=== PATIENT | male | born 1990 | race Asian ===

== ENCOUNTER 2025-07-29 16:50 | Emergency (ER) | payer OTHER ==
[~2025-07-29] VITALS: Ht 158.8 cm; Wt 80.3 kg
[2025-07-29] MEDS: FAMOTIDINE 20 MG TAB PO ONE (19:33)
[2025-07-29] MEDS: predniSONE 20 MG TAB PO ONE (19:33)
[2025-07-29] MEDS ORDERED: CETI10CH PO (20:14)
[2025-07-29] MEDS ORDERED: PRED20TA PO (20:14)
[2025-07-29 20:50] VITALS: BP 113/70; TEMP 98; O2SAT 98
== END 2025-07-29 20:55 | disposition home or self-care (01) ==
LOC: M ED 16:50
DX: L50.9 Urticaria, unspecified (principal); F17.200 Nicotine dependence, unspecified, uncomplicated
CPT/HCPCS: 99283; J7512